=== PATIENT | male | born 1995 | race American Indian/Alaskan Native ===

== ENCOUNTER 2016-11-16 22:39 | Emergency (ER) | payer OTHER ==
[2016-11-17 00:38] VITALS: BP 130/86
[2016-11-17] MEDS ORDERED: NORCO 5/325 PO ONE (02:44)
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
== END 2016-11-17 03:33 | disposition home or self-care (01) ==
LOC: ED 22:39
DX: M54.6 Pain in thoracic spine (principal); F17.200 Nicotine dependence, unspecified, uncomplicated; V89.2XXA Person injured in unspecified motor-vehicle accident, traffic, initial encounter; Y93.89 Activity, other specified; Y99.9 Unspecified external cause status; Y92.410 Unspecified street and highway as the place of occurrence of the external cause
CPT/HCPCS: 99283